=== PATIENT | male | born 2000 | race Caucasian/White ===

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

== ENCOUNTER 2022-07-22 13:30 | Emergency (ER) | payer BC ==
[2022-07-22 13:39] VITALS: BP 137/80; PULSE 97; RESP 20; TEMP 98.5; BMI 30.8
== END 2022-07-22 14:24 | disposition home or self-care (01) ==
LOC: JERFT 13:30
DX: H60.502 Unspecified acute noninfective otitis externa, left ear (principal); H65.02 Acute serous otitis media, left ear; R51.9 Headache, unspecified
CPT/HCPCS: 99283-25